=== PATIENT | male | born 1970 | race American Indian/Alaskan Native ===

== ENCOUNTER 2017-02-28 18:33 | Emergency (ER) | payer SELFPAY ==
[2017-02-28 20:12] LABS: Eosinophils % (Auto) 2.4 % (0.0-4.3); Hematocrit 51.3 % (35.5-45.6); Hemoglobin 17.1 gm/dl (11.8-15.2); Mean Corpuscular HGB Conc 33 % (32-34); Mean Corpuscular Hemoglobin 30 pg (28-32); Mean Corpuscular Volume 90 fl (84-94); Platelet Count 366 K/mm3 (140-440); Red Blood Count 5.69 M/mm3 (3.65-5.03); White Blood Count 12.5 K/mm3 (4.5-11.0)
[2017-02-28 20:35] LABS: Anion Gap 21 mmol/L; BUN/Creatinine Ratio 9; Blood Urea Nitrogen 9 mg/dL (9-20); Calcium 9.8 mg/dL (8.4-10.2); Carbon Dioxide 27 mmol/L (22-30); Chloride 99.5 mmol/L (98-107); Glucose 86 mg/dL (75-100); Potassium 4.2 mmol/L (3.6-5.0); Sodium 143 mmol/L (137-145)
[2017-02-28 21:56] VITALS: BP 121/67
--- NOTE | 2017-03-01 07:13 | XRay Report ---
Chest 2 views: Compared to 02/03/16. History: Cough, chills. Findings: Normal cardiomediastinal silhouette. Trachea is midline. No consolidation, pneumothorax or pleural effusion. Impression: No acute cardiopulmonary findings.
== END 2017-02-28 20:10 | disposition left against medical advice (07) ==
LOC: ED 18:33
DX: R07.89 Other chest pain (principal); M54.9 Dorsalgia, unspecified; R05 Cough; Z53.21 Procedure and treatment not carried out due to patient leaving prior to being seen by health care provider
CPT/HCPCS: 36415; 71020; 80048; 84484; 85025; 93005; 93010